=== PATIENT | male | born 1950 | race Caucasian/White ===

== ENCOUNTER 2017-04-24 15:38 | Emergency (ER) | payer OTHER ==
[2017-04-24] MEDS ORDERED: Ibuprofen 800 MG Tab PO ONE (15:50)
[2017-04-24] MEDS ORDERED: methylPREDNISolone Sodium Succinate 125 MG/2 ML SDV IM ONE ×2 (15:50→16:14)
[2017-04-24 15:55] VITALS: BP 138/70
[2017-04-24] MEDS ORDERED: diphenhydrAMINE 50 MG/ML SDV IM ONE (16:13)
--- NOTE | 2017-04-24 16:15 | EDM.PDOC ---
ED HPI GENERAL MEDICAL PROBLEM - General Chief Complaint: Bite:Animal, Insect Stated Complaint: BEE STING Time Seen by Provider: 04/24/17 16:11 Source of Information: Reports: Patient History Limitations: Reports: No Limitations - History of Present Illness INITIAL COMMENTS - FREE TEXT/NARRATIVE: Was stung by a yellowjacket today on the lip. No history of allergy. No trouble swallowing or difficulty breathing. No hives. Onset: Today, Sudden Onset Date: 04/24/17 Onset Time: 13:00 Location: Reports: Face Quality: Reports: Burning Severity: Mild Improves with: Reports: None Worsens with: Reports: None Context: Reports: Trauma Associated Symptoms: Reports: No Other Symptoms - Related Data Allergies Allergy/AdvReac Type Severity Reaction Status Date / Time No Known Allergies Allergy Verified 04/24/17 15:55 Home Meds: Home Meds *Lisinopril 04/24/17 [History] *Warfarin 04/24/17 [History] atorvaSTATin [Lipitor] 80 mg PO DAILY 04/24/17 [History] Past Medical History Cardiovascular History: Reports: High Cholesterol Musculoskeletal History: Reports: Fracture Neurological History: Reports: Concussion - Past Surgical History Cardiovascular Surgical History: Reports: Valve Replacement GI Surgical History: Reports: Appendectomy Social & Family History - Tobacco Use Smoking Status *Q: Never Smoker - Alcohol Use Days Per Week of Alcohol Use: 5 Number of Drinks Per Day: 2 Total Drinks Per Week: 10 - Recreational Drug Use Recreational Drug Use: No ED ROS GENERAL - Review of Systems Review Of Systems: See Below Constitutional: Reports: No Symptoms HEENT: Reports: Other (lower lip swelling) Respiratory: Reports: No Symptoms Cardiovascular: Reports: No Symptoms Endocrine: Reports: No Symptoms Musculoskeletal: Reports: No Symptoms Skin: Reports: No Symptoms Neurological: Reports: No Symptoms ED EXAM, ANIMAL BITE - Physical Exam Exam: See Below Exam Limited By: No Limitations General Appearance: Alert, WD/WN, No Apparent Distress Nose: Normal Inspection, Normal Mucosa, No Blood Throat/Mouth: Other (lower lip swelling) Head: Atraumatic, Normocephalic Neck: Lymphadenopathy (R) (bilateral) Respiratory/Chest: No Respiratory Distress, Lungs Clear, Normal Breath Sounds, No Accessory Muscle Use, Chest Non-Tender Cardiovascular: Normal Peripheral Pulses, Regular Rate, Rhythm, No Edema, No Gallop, No JVD, No Murmur, No Rub Course - Vital Signs Last Recorded V/S: Last Vital Signs Temp 98.1 F 04/24/17 15:53 Pulse 69 04/24/17 15:53 Resp 13 04/24/17 15:53 BP 138/70 04/24/17 15:53 Pulse Ox 97 04/24/17 15:53 - Orders/Labs/Meds Meds: Medications Discontinued Medications Generic Name Dose Route Start Last Admin Trade Name Steven PRN Reason Stop Dose Admin Diphenhydramine HCl 50 mg 04/24/17 16:13 04/24/17 16:40 Benadryl IM 04/24/17 16:14 50 mg ONETIME ONE Administration Ibuprofen 800 mg 04/24/17 15:50 Motrin PO 04/24/17 15:51 ONETIME ONE Methylprednisolone Sodium Succinate 125 mg 04/24/17 15:50 Solu-Medrol IM 04/24/17 15:51 ONETIME ONE Methylprednisolone Sodium Succinate 125 mg 04/24/17 16:14 04/24/17 16:42 Solu-Medrol IM 04/24/17 16:15 125 mg ONETIME ONE Administration Departure - Departure Time of Disposition: 17:08 Disposition: Home, Self-Care 01 Condition: Good Clinical Impression: Bee sting Qualifiers: Encounter type: initial encounter Injury intent: accidental or unintentional Qualified Code(s): T63.441A - Toxic effect of venom of bees, accidental ( unintentional), initial encounter - Discharge Information Instructions: Insect Bite, [id number] Referrals: PCP,None [Primary Care Provider] - Forms: ED Department Discharge Additional Instructions: Pt given Solumedrol IM and Benadryl IM in ER with good response. Will continue Benadryl 50mg po every 8 hours as needed. Rx for Prednisone 20mg 2 tabs daily x 5 days. May use Zyrtec 10mg daily x 1 week. Increase fluids. Limit exposure to bees. - Problem List & Annotations (1) Bee sting SNOMED Code(s): 049792499 Code(s): T63.441A - TOXIC EFFECT OF VENOM OF BEES, ACCIDENTAL, INIT Status : Acute Priority: Medium Current Visit: Yes Qualifiers: Encounter type: initial encounter Injury intent: accidental or unintentional Qualified Code(s): T63.441A - Toxic effect of venom of bees, accidental (unintentional), initial encounter
== END 2017-04-24 17:21 | disposition home or self-care (01) ==
LOC: JP.ED 15:38
DX: T63.441A Toxic effect of venom of bees, accidental (unintentional), initial encounter (principal); E78.00 Pure hypercholesterolemia, unspecified; Z90.49 Acquired absence of other specified parts of digestive tract; Z79.01 Long term (current) use of anticoagulants; Z79.899 Other long term (current) drug therapy; Z95.2 Presence of prosthetic heart valve
CPT/HCPCS: 96372; 99283; J1200; J2930